=== PATIENT | female | born 1980 | race Caucasian/White ===

== ENCOUNTER 2020-04-21 19:27 | Emergency (ER) | payer OTHER ==
[~2020-04-21 19:27] MED LIST: BACTRIM DS TAB1 EACH PO; CHLORASEPTIC S1 EACH PO; CYCLOBENZAPRINE10 MG PO; IBUPROFEN800 MG PO; LIDOCAINE 5% P1 EACH TOP; PERCOCET 5-3251 EACH PO; TESSALON PERLE100 MG PO
== END 2020-04-21 20:45 | disposition home or self-care (01) ==
LOC: FER 19:27
DX: S61.211A Laceration without foreign body of left index finger without damage to nail, initial encounter (principal); S61.213A Laceration without foreign body of left middle finger without damage to nail, initial encounter; Z23 Encounter for immunization; Z88.1 Allergy status to other antibiotic agents; W26.0XXA Contact with knife, initial encounter; Y92.009 Unspecified place in unspecified non-institutional (private) residence as the place of occurrence of the external cause
CPT/HCPCS: 90471; 90715